=== PATIENT | male | born 1965 | race Caucasian/White ===

== ENCOUNTER 2024-02-24 17:01 | Emergency (ER) | payer OTHER ==
[~2024-02-24] VITALS: Ht 167.6 cm; Wt 78.6 kg
[2024-02-24] VITALS (8 sets, daily range): BP systolic 128–168; BP diastolic 81–111
[~2024-02-24 17:01] MED LIST: VICODIN HP1 TA1 PO
[2024-02-24] MEDS ORDERED: traMADol HCL 50 MG/TAB PO ONE (17:20)
[2024-02-24] MEDS ORDERED: TRAMADOL HYDROC50 M1 PO (18:44)
== END 2024-02-24 19:03 | disposition home or self-care (01) | DRG 556 ==
LOC: ED 17:01
DX: M79.671 Pain in right foot (principal)